=== PATIENT | male | born 2000 | race Caucasian/White ===

== ENCOUNTER 2021-05-03 23:02 | Emergency (ER) | payer OTHER ==
[2021-05-04 00:32] LABS: BASO # 0.01 (0.02-0.10); EOS # 0.06 (0.04-0.40); EOS % 0.4 % (0.0-4.0); HEMATOCRIT 44.8 % (42.0-52.0); HEMOGLOBIN 15.3 g/dL (13.5-18.0); LYMPH# 1.22 (1.50-4.00); MEAN CELL VOLUME 84 fl (78-100); MEAN CORPUSCULAR HEMOGLOBIN 29 pg (27-31); MEAN CORPUSCULAR HGB CONC 34 g/dL (33-37); MEAN PLATELET VOLUME 10.2 fl (7.4-10.4); MONO # 1.07 (0.20-0.80); NEU # 13.62 (1.40-6.50); PLATELET COUNT 236 K/mm3 (130-400); RED BLOOD COUNT 5.32 M/mm3 (4.20-5.60); RED CELL DISTRIBUTION WIDTH 12.5 % (11.5-14.5)
[2021-05-04 00:33] LABS: ALBUMIN 4.3 g/dL (3.5-5.0); POTASSIUM 3.4 mmol/L (3.5-5.1)
[2021-05-04 00:35] LABS: CALCIUM 9.3 mg/dL (8.3-10.5)
[2021-05-04 00:36] LABS: TOTAL PROTEIN 7.4 g/dL (6.4-8.3)
[2021-05-04 00:38] LABS: TOTAL BILIRUBIN 0.8 mg/dL (0.2-1.2)
[2021-05-04 00:54] LABS: URINE APPEARANCE CLEAR; URINE COLOR YELLOW
[2021-05-04 00:55] LABS: URINE BILIRUBIN NEGATIVE (NEGATIVE); URINE BLOOD TRACE (NEGATIVE); URINE GLUCOSE NEGATIVE (NEGATIVE); URINE KETONE 1+ (NEGATIVE); URINE LEUKOCYTE ESTERASE NEGATIVE (NEGATIVE); URINE NITRATE NEGATIVE (NEGATIVE); URINE PROTEIN(semi-quant) NEGATIVE (NEGATIVE); URINE UROBILINOGEN NORMAL (NORMAL)
[2021-05-04 00:56] LABS: URINE MUCUS PRESENT (NOT PRESENT)
[2021-05-04] MEDS ORDERED: VIBRAMYCIN HYC100 MG PO (01:19)
[2021-05-04 01:34] VITALS: BP 139/89
== END 2021-05-04 01:34 | disposition home or self-care (01) ==
LOC: ED 23:02
PROVIDERS: Physician Assistant
DX: N45.1 Epididymitis (principal); T63.441A Toxic effect of venom of bees, accidental (unintentional), initial encounter; D72.829 Elevated white blood cell count, unspecified; F17.290 Nicotine dependence, other tobacco product, uncomplicated
CPT/HCPCS: J0696; J2930